=== PATIENT | male | born 1985 | race Hispanic/Latino ===

== ENCOUNTER 2020-04-30 10:49 | Emergency (ER) | payer OTHER, SELFPAY ==
[2020-04-30 10:52] VITALS: BP 145/92; PULSE 74; RESP 18; TEMP 36.3; O2SAT 98; BMI 24.7
--- NOTE | 2020-04-30 11:03 | ED.DCSUM_ITS ---
History of Present Illness Chief Complaint: Upper Extremity Injury Informant: Patient, Friend Onset: Today Narrative: She was at work today when he got his left hand caught on a [employer] ureter machine. Apparently its has a conveyor like belt and often has trays on it. Sometimes the trays are very hot. He notes painful range of motion and swelling of the dorsum of the left hand particular over the lateral aspect. Abrasion to left little finger. Past Medical History - Allergies and Home Meds Allergies/Adverse Reactions: Allergies No Known Allergies Allergy (Verified 04/30/20 10:50) Primary Care Physician: Care Physician,No Primary [Primary Care Provider] - Review of Systems General: Denies: Chills, Fever, Sweats Eyes: Denies: Visual changes - bilaterally, Diplopia ENT: Denies: Rhinorrhea, Sore throat Cardiovascular: Denies: Chest pain, Palpitations Respiratory: Denies: Dyspnea, Cough, Dyspnea on exertion Gastrointestinal: Denies: Abdominal pain, Nausea, Vomiting, Diarrhea, Melena, Hematochezia Genitourinary: Denies: Dysuria, Hematuria, Frequency Musculoskeletal: Reports: Extremity Pain. Denies: Back pain Skin: Denies: Rash, Wounds Neurological: Denies: Headache, Weakness, Numbness Physical Exam Vital Signs/Narrative: Vital Signs Temp Pulse Resp BP Pulse Ox 04/30/20 10:52 97.3 F L 74 18 145/92 H 98 Inital Vital Signs reviewed: Yes General: Well nourished, Well developed, No Acute Distress Head: Normocephalic, Atraumatic Eyes: Perrl, EOMI ENT: Moist mucous membranes, No rhinorrhea Neck: Supple, Nontender Cardiovascular: Regular rate, Regular rhythm, No murmurs Respiratory: No distress, CTA bilaterally, Chest nontender Abdomen: Soft, Nontender, Nondistended, Normal bowel sounds Back: Nontender, Normal Inspection Extremities: No edema, - - There is tenderness swelling and erythema as well as some ecchymosis over the dorsum of the lateral left wrist and hand. Painful supination and pronation. Superficial abrasion to the PIP joint of the left little finger. The dorsum of the hand appears to be a first-degree burn as the edges of the erythema are very linear. Skin: Normal color, No rash Neurological: Alert, Oriented x3, Cranial nerves II-XII grossly intact, Normal Strength, Normal Sensation Psychological: Normal affect, Normal Mood Diagnostic/Tx/Re-eval Clinical Impression(s) from Imaging Studies Wrist X-Ray 04/30/20 11:25 IMPRESSION: Normal x-ray examination of the wrist. Electronically Signed: Weston Fang MD at 11:37 EDT , Service support , - Medical Decision Making Tetanus was updated with Adacel. Wounds were cleansed and dressed with bacitracin and dry sterile dressing. I think the patient most likely sustained a crush injury as well as either a friction burn or possibly a thermal burn. He will follow-up with Workmen's Comp. ED Disposition - Plan for ED Patient: Disposition: Home or Assisted Living Diagnosis: First degree burn of hand, Crushing injury of hand, left Instructions: ED Crush Injury Finger No Fx, ED First- and Second-Degree [facility] Prescriptions: Bacitracin Ointment 1 applic TOPICAL BID #30 g Prescription Printed Hydrocodone Bitart/Apap 5-325 [[facility] 5MG-325MG] 1 tab PO Q6H PRN PRN 3 Days #12 tab PRN Reason: Pain Prescription Printed Referrals: Clinic,NOW [NON-STAFF] - As soon as possible
[2020-04-30] MEDS: Ibuprofen 400 MG Tablet 800 MG PO (11:07)
--- NOTE | 2020-04-30 11:25 | RAD_ITS ---
STUDY: X-RAY - LEFT WRIST REASON FOR EXAM: Male, 34 years old. Smashed left wrist at work TECHNIQUE: 3 view(s) of the wrist were obtained. COMPARISON: None. FINDINGS: Normal visualized distal radius and ulna. Normal radiocarpal articulation. Normal distal radioulnar articulation. Normal carpal bones. Normal carpal articulations. Normal carpometacarpal articulation of the thumb. Normal second through fifth carpometacarpal articulations. Normal visualized metacarpal bones. The soft tissue structures are unremarkable. RAD/Wrist min 3 Views IMPRESSION: Normal x-ray examination of the wrist. Electronically Signed: Weston Fang MD at 11:37 EDT , Service support ,
[2020-04-30] MEDS: Diphth,Pertuss(Acell),Tet Vac 0.5 ML Vial IM (12:10)
== END 2020-04-30 12:28 | disposition home or self-care (01) ==
LOC: ED 12:05
PROVIDERS: Emergency Provider Emergency Medicine
DX: T23.102A Burn of first degree of left hand, unspecified site, initial encounter (principal); S67.22XA Crushing injury of left hand, initial encounter; X15.2XXA Contact with hotplate, initial encounter; W23.0XXA Caught, crushed, jammed, or pinched between moving objects, initial encounter; Y93.9 Activity, unspecified; Y92.9 Unspecified place or not applicable
CPT/HCPCS: 73110; 90715; 99283